=== PATIENT | female | born 1990 | race African-American/Black ===

== ENCOUNTER 2020-08-24 18:31 | Emergency (ER) | payer SELFPAY ==
[2020-08-24] MEDS ORDERED: traMADol 50 MG Tab PO ONE (18:57)
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
[2020-08-24] MEDS ORDERED: Take Home: Naproxen 500 MG Tab, 4 Tab Pack PO ONE (20:28)
[2020-08-24] MEDS ORDERED: Take Home: traMADol 50 MG, 4 Tab Pack PO ONE (20:28)
--- NOTE | 2020-08-26 10:07 | CR ---
[id number] RAD/RAD Shoulder Right 2V Min Exam: RAD Shoulder Right 2V Min Indication:SHOULDER PAIN FALL. Comparison: No prior imaging for comparison. Discussion/Impression: Elevation of the distal clavicle at the acromioclavicular articulation. Correlate for pain as this could represent acromioclavicular separation injury. No fracture. Degenerative change on the humeral head at the rotator cuff footprint. Curved acromion with degenerative change along its bursal surface. Glenohumeral osteoarthritis. Whitfield MD 08/26/20 1007 Thank you for allowing us to participate in the care of your patient.
--- NOTE | 2020-08-26 10:29 | CR ---
[id number] RAD/RAD Shoulder Left 2V Min Exam: RAD Shoulder Left 2V Min Indication:SHOULDER PAIN FALL. Comparison: No prior imaging for comparison. Discussion/Impression: Acromioclavicular and glenohumeral osteoarthritis. No acute fracture or dislocation. No AVN or erosive changes. Degenerative change of the humeral head at the rotator cuff footprint. Curved acromion with degenerative change along its bursal surface. Eder Whitfield MD 08/26/20 1027 Thank you for allowing us to participate in the care of your patient.
== END 2020-08-24 20:44 | disposition home or self-care (01) ==
LOC: VM.ED 18:31
DX: S43.402A Unspecified sprain of left shoulder joint, initial encounter (principal); S43.401A Unspecified sprain of right shoulder joint, initial encounter; S39.012A Strain of muscle, fascia and tendon of lower back, initial encounter; Z88.1 Allergy status to other antibiotic agents; Z91.018 Allergy to other foods; Z88.8 Allergy status to other drugs, medicaments and biological substances; W18.39XA Other fall on same level, initial encounter
CPT/HCPCS: 73030-50; 73030-LT; 73030-RT; 99283; 99283-25; A9270-GY

== ENCOUNTER 2021-03-13 15:00 | Emergency (ER) | payer MEDICAID ==
[2021-03-13] MEDS ORDERED: Acetaminophen 500 MG Tab PO ONE (15:11)
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
--- NOTE | 2021-03-17 09:41 | CR ---
[id number] RAD/RAD Shoulder Right 2V Min EXAM: 2 VIEWS RIGHT SHOULDER. INDICATION: RIGHT SHOULDER INJURY. COMPARISON: None. DISCUSSION: No fracture, dislocation or other acute osseous abnormality. The visualized right lung is clear. IMPRESSION: 1. No acute osseous abnormalities. Alex De Leon DO 03/17/21 0951 Thank you for allowing us to participate in the care of your patient.
== END 2021-03-13 15:54 | disposition home or self-care (01) ==
LOC: VM.ED 15:00
DX: M25.511 Pain in right shoulder (principal); Z91.048 Other nonmedicinal substance allergy status; Z88.1 Allergy status to other antibiotic agents; Z88.8 Allergy status to other drugs, medicaments and biological substances
CPT/HCPCS: 99283; A9270; 73030-RT